=== PATIENT | female | born 1990 | race Caucasian/White ===

== ENCOUNTER 2018-10-14 03:00 | Emergency (ER) | payer MEDICAID ==
[~2018-10-14] VITALS: Ht 167.6 cm; Wt 71.7 kg
[2018-10-14 03:08] VITALS: BP 124/69
--- NOTE | 2018-10-14 03:08 | NUR ---
to bed # 09 via wheel chair
--- NOTE | 2018-10-14 03:31 | NUR ---
DR. GALLOWAY EVALUATING AT BEDSIDE.
[2018-10-14] MEDS ORDERED: NACL 0.9% 1,000 ML IV ONE (03:35)
[2018-10-14] MEDS ORDERED: KETOROLAC 30 MG/ML VIAL IVP ONE (03:35)
--- NOTE | 2018-10-14 03:44 | NUR ---
PHLEB AT BEDSIDE DRAWING BLOOD.
[2018-10-14 03:51] LABS: BASOPHILS % (AUTO) 0.1 % (0.0-2.0); HEMOGLOBIN 14.4 g/dL (12.0-16.0); LYMPHOCYTES # (AUTO) 0.8 K/uL (2.5-16.5); MEAN CORPUSCULAR HEMOGLOBIN 32 pg (27-31); MEAN CORPUSCULAR HGB CONC 35 g/dL (33-37); MEAN CORPUSCULAR VOLUME 91.4 fL (80-94); MONOCYTES # (AUTO) 0.6 K/uL (0.8-1.0); MONOCYTES % (AUTO) 4.5 % (1.7-9.3); NEUTROPHILS # (AUTO) 12.9 K/uL (1.8-7.7); NEUTROPHILS % (AUTO) 89.6 % (42.2-75.2); PLATELET COUNT (AUTO) 262 K/uL (140-450); RED BLOOD CELL COUNT(AUTO) 4.49 MIL/uL (4.20-5.40); RED CELL DISTRIBUTION WIDTH 12.5 % (11.6-13.7); WHITE BLOOD COUNT (AUTO) 14.4 K/uL (4.8-10.8)
[2018-10-14 04:01] LABS: LYMPHOCYTES % (AUTO) 5.8 % (20.5-51.1)
[2018-10-14 04:02] LABS: ANION GAP 16.5 (8-16); CARBON DIOXIDE 22.1 mmol/L (21-32); CREATININE 0.8 mg/dL (0.6-1.3); POTASSIUM 3.6 mmol/L (3.5-5.1)
[2018-10-14 04:08] LABS: ALBUMIN 3.6 g/dL (3.4-5.0); TOTAL BILIRUBIN 0.7 mg/dL (0.0-1.0)
[2018-10-14 04:58] VITALS: BP 114/68
--- NOTE | 2018-10-14 04:58 | NUR ---
Patient discharged with v/s stable. Written and verbal after care instructions given and explained. Patient alert, oriented and verbalized understanding of instructions. Ambulatory with steady gait. All questions addressed prior to discharge. ID band removed. Patient advised to follow up with PMD. Rx of Bactrim and Motrin given. Patient educated on indication of medication including possible reaction and side effects. Opportunity to ask questions provided and answered.
== END 2018-10-14 04:58 | disposition home or self-care (01) ==
LOC: EDBD 03:00 → MED 03:00
DX: R50.9 Fever, unspecified (principal); M79.10 Myalgia, unspecified site; M54.9 Dorsalgia, unspecified; R10.9 Unspecified abdominal pain; R07.9 Chest pain, unspecified; R51 Headache
CPT/HCPCS: 36415; 80053; 85025; 96374; 99283; J1885; J7030

== ENCOUNTER 2023-05-26 00:15 | Emergency (ER) | payer MEDICAID ==
[~2023-05-26] VITALS: Ht 160 cm; Wt 74.4 kg
[2023-05-26 00:27] VITALS: BP 119/62; PULSE 97; RESP 16; TEMP 97.7; O2SAT 98
[2023-05-26 01:40] VITALS: BP 117/60; PULSE 78; RESP 16; TEMP 97.7; O2SAT 98
== END 2023-05-26 01:40 | disposition home or self-care (01) ==
LOC: MED 00:15
DX: S61.001A Unspecified open wound of right thumb without damage to nail, initial encounter (principal); W26.0XXA Contact with knife, initial encounter; Y93.89 Activity, other specified; Y92.89 Other specified places as the place of occurrence of the external cause; Y99.8 Other external cause status
CPT/HCPCS: 99282